=== PATIENT | female | born 1990 | race Caucasian/White ===

== ENCOUNTER → 2016-12-03 | Outpatient (CLI) | payer BC ==
--- NOTE | 2016-12-04 09:02 | XR ---
EXAMINATION TYPE: XR foot complete LT DATE OF EXAM: 12/03/2016 12:18 PM CLINICAL HISTORY: Left foot pain worse fourth metatarsal after stepping injury. TECHNIQUE: Frontal, lateral, and oblique images of the left foot are obtained. COMPARISON: None FINDINGS: There is no acute fracture/dislocation evident in the left foot. Some flexion and varus po sitioning of distal fourth toe is present. The Hodges's toe is seen. There is minimal spurring base o f fourth and fifth metatarsals. Subchondral cyst is seen lateral aspect of the cuboid. The overlying soft tissue appears unremarkable. IMPRESSION: There is no acute fracture or dislocation in the left foot.
== END | disposition home or self-care (01) ==
LOC: RADXRYALE 11:45
PROVIDERS: ATTEND Physician Assistant Medical
DX: S99.922A Unspecified injury of left foot, initial encounter (principal)